=== PATIENT | female | born 1965 | race Caucasian/White ===

== ENCOUNTER 2019-11-16 18:54 | Emergency (ER) | payer MEDICARE, OTHER ==
[~2019-11-16] VITALS: Ht 162.6 cm; Wt 86.2 kg
[~2019-11-16 18:54] MED LIST: EQ IBUPROFEN P1 EACH PO; FOLIC ACID1 MG PO; IBUPROFEN600 MG PO; METHOTREXATE2.5 MG PO; ONCE DAILY1 EACH PO; ONE DAILY FOR1 EACH PO; VENTOLIN HFA18 GM IH; VENTOLIN HFA18 GM INH; ZIPSOR25 MG PO
== END 2019-11-16 19:41 | disposition home or self-care (01) ==
LOC: ED 18:54
DX: S91.112A Laceration without foreign body of left great toe without damage to nail, initial encounter (principal); J45.909 Unspecified asthma, uncomplicated; F17.200 Nicotine dependence, unspecified, uncomplicated; Z88.5 Allergy status to narcotic agent; Z79.899 Other long term (current) drug therapy; W22.8XXA Striking against or struck by other objects, initial encounter
CPT/HCPCS: 12002; 99282-25

== ENCOUNTER 2021-06-19 10:46 | Emergency (ER) | payer MEDICARE, OTHER ==
[~2021-06-19] VITALS: Ht 162.6 cm; Wt 90.0 kg
== END 2021-06-19 13:12 | disposition home or self-care (01) ==
LOC: ED 10:46
DX: R05.9 Cough, unspecified (principal); R19.7 Diarrhea, unspecified; B97.4 Respiratory syncytial virus as the cause of diseases classified elsewhere; Z20.822 Contact with and (suspected) exposure to COVID-19; J45.909 Unspecified asthma, uncomplicated; F17.200 Nicotine dependence, unspecified, uncomplicated; Z88.5 Allergy status to narcotic agent; Z79.899 Other long term (current) drug therapy
CPT/HCPCS: 71045; 99283-25; C9803; U0003

== ENCOUNTER 2024-09-27 08:10 | Day surgery (SDC) | payer MEDICARE ==
[2024-09-18 11:42] VITALS: BP 127/89
[~2024-09-27] VITALS: Ht 162.6 cm; Wt 101.4 kg
[~2024-09-27 08:10] MED LIST changes: +IBLOOD GLUCOSE TEST STRIP 1 EA TEST VI PRN; +LACTATED RINGER'S 1,000 ML IV SCH; +LIDOCAINE HCL 1% 5 ML SDV INJ ONE; +MIDAZOLAM HCL 5 MG/5 ML VIAL IV PRN; +fentaNYL citrate 100 MCG/2 ML VIAL IV PRN
[2024-09-27 08:20] VITALS: BP 137/84
[2024-09-27] MEDS ORDERED: propofoL 200 MG/20 ML VIAL ONE (08:49)
[2024-09-27] MEDS ORDERED: KETAMINE in NS 50 MG/5 ML SYR ONE (08:49)
[2024-09-27] MEDS ORDERED: LIDOCAINE HCL 2% 5 ML SDV ONE (08:49)
--- NOTE | 2024-09-27 09:31 | NUR ---
09/27/24 0931 Miroslava Ryan 0916-PT ARRIVES TO PACU VIA STRETCHER, RESTING COMFORTABLY ON LT SIDE, PT NOT RESPONSIVE TO VERBAL OR TACTILE STIMULI, VSS ON 6L VIA NC, RR EVEN AND UNLABORED, PT PASSING GAS.
[2024-09-27 09:42] VITALS: BP 134/83
--- NOTE | 2024-09-27 14:32 | OR ---
[facility] [address], [place] [address] Signed DATE OF OPERATION: 09/27/2024 SURGEON: Christina Haley MD PREOPERATIVE DIAGNOSIS: Screening. POSTOPERATIVE DIAGNOSES: 1. Minimal sigmoid diverticulosis. 2. Minimal internal hemorrhoids. 3. Minimal to moderate external hemorrhoids. PROCEDURE: Colonoscopy without biopsy. ESTIMATED BLOOD LOSS: None. INDICATIONS: Christine is a 59-year-old obese female, asked to see me for followup colonoscopy. I helped her in 2012 at the age of 47 for her initial colonoscopy. She was having trouble with a change in bowel habits associated with incomplete defecation. Her colonoscopy was unremarkable. We had recommended advance testing. She was never able to make it down to [place] because of transportation issues. She has now been asked to come back and repeat her colonoscopy. We had her on the 10 year plan. Her stave cutting supervisor told her she has a rectocele. She said the incomplete defecation is getting worse. She is hoping she can go to our [facility] for her advance testing and treatment. She tells me there is no family history of colon cancer or polyps. In the office, I gave her a pamphlet on colonoscopy. We had reviewed the nature of the test. There is risk including, but not limited to gas bloating, crampy abdominal pain, bleeding, perforation requiring surgery, and missed diagnosis. We also reviewed the written instructions for the bowel prep line by line. In addition, she continues to smoke on a regular basis. She has a dry raspy voice. She has a full round heavy face, chest and abdomen. Consequently, we asked for monitored anesthesia care propofol infusion. That worked out very nicely. She had expressed understanding and wished to proceed. DESCRIPTION OF PROCEDURE: Christine was taken into our endoscopy suite and placed in the left lateral decubitus position. She was given monitored anesthesia care propofol infusion per nurse solidworks designer. A digital rectal exam was performed and she has small to moderate sized Electronically Signed By: CHRISTINA HALEY MD 09/27/24 1432 PATIENT NAME: CHRISTINE MAGDALENO OPERATIVE REPORT DATE OF : 65 REPORT #: [id number] PHYSICIAN: CHRISTINA HALEY MD PCP: SHERRY CARDONA MD REPORT IS CONFIDENTIAL AND NOT TO BE RELEASED WITHOUT AUTHORIZATION [facility] [address], [place] [address] Signed circumferential external hemorrhoids. She had good sphincter tone. No masses. The adult colonoscope was introduced and advanced all they way around into the cecum under direct visualization of camera without difficulty. Her prep was quite excellent. It took extra sedation to get around into the cecum itself. We could easily see the appendiceal orifice and ileocecal valve. The scope was then slowly withdrawn. We took several pictures throughout for photodocumentation. She does have some diverticula in the sigmoid colon. Her diverticula are moderate in size, few in number and scattered about. Scope was then retroflexed in the rectum. She has minimal internal hemorrhoid tissue as well. After this, the gas was suctioned out, colonoscope removed. Christine tolerated the procedure quite well. RECOMMENDATIONS: Christine can return in 10 years for repeat screening colonoscopy. Christina Haley MD ALB/MODL /[id number] cc: MD Swapnil Talavera MD Copies: CHRISTINA HALEY MD ~ Electronically Signed By: CHRISTINA HALEY MD 09/27/24 1432 PATIENT NAME: CHRISTINE MAGDALENO OPERATIVE REPORT DATE OF : 65 REPORT #: [id number] PHYSICIAN: CHRISTINA HALEY MD PCP: SHERRY CARDONA MD REPORT IS CONFIDENTIAL AND NOT TO BE RELEASED WITHOUT AUTHORIZATION
== END 2024-09-27 09:55 | disposition home or self-care (01) ==
LOC: DS 08:10
PROVIDERS: ATTEND Colon & Rectal Surgery
PROC: 0DJD8ZZ Inspection of Lower Intestinal Tract, Via Natural or Artificial Opening Endoscopic (ICD-10-PCS; principal; 2024-09-27 09:00)
DX: Z12.11 Encounter for screening for malignant neoplasm of colon (principal); K57.30 Diverticulosis of large intestine without perforation or abscess without bleeding; K64.8 Other hemorrhoids; K64.4 Residual hemorrhoidal skin tags; E66.9 Obesity, unspecified; K21.9 Gastro-esophageal reflux disease without esophagitis; N81.6 Rectocele; F17.200 Nicotine dependence, unspecified, uncomplicated; J44.9 Chronic obstructive pulmonary disease, unspecified; M15.9 Polyosteoarthritis, unspecified; F12.10 Cannabis abuse, uncomplicated; Z68.37 Body mass index [BMI] 37.0-37.9, adult
CPT/HCPCS: J2003; J2704; J3490; J7121